=== PATIENT | female | born 1950 | race Caucasian/White ===

== ENCOUNTER 2018-07-03 03:44 | Emergency (ER) | payer OTHER ==
[2018-07-03 03:55] VITALS: BP 126/64; PULSE 63; TEMP 97.8
[2018-07-03] MEDS ORDERED: ACETAMINOPHEN 325 MG TABLET (FP) PO ONE (05:43)
--- NOTE | 2018-07-03 06:09 | PDOC ---
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 The patient states that she noted gradual, worsening, and constant L hip pressure which does not radiate. The pain is not associated with any dysuria, numbness, tingling, or weakness, fevers , chills, nausea, or vomiting. The pain is worse when bending forward but not alleviated by anything. Past History - Past Medical History Allergies/Adverse Reactions: Allergies Allergy/AdvReac Type Severity Reaction Status Date / Time No Known Allergies Allergy Verified 07/03/18 06:01 CVA: Yes COPD: No Other medical history: UNKNOWN MEDICAL HISTORY - Immunization History Immunization Up to Date: (UNKNOWN) - Suicide/Smoking/Psychosocial Hx Smoking History: Never smoked Have you smoked in the past 12 months: No Information on smoking cessation initiated: No Hx Alcohol Use: No Drug/Substance Use Hx: No Review of Systems - Review of Systems Able to Perform ROS?: Yes Comments:: 07/03/18 06:09 GENERAL/CONSTITUTIONAL: No fever or chills. No weakness. HEAD, EYES, EARS, NOSE AND THROAT: No change in vision. No ear pain or discharge. No sore throat. CARDIOVASCULAR: No chest pain, palpitations, or lightheadedness. RESPIRATORY: No cough, wheezing, shortness of breath, or hemoptysis. GASTROINTESTINAL: No nausea, vomiting, diarrhea, constipation, or abdominal pain. GENITOURINARY: No dysuria, frequency, hematuria, or change in urination. MUSCULOSKELETAL: Positive for L hip pain. No neck or back pain. SKIN: No rash or lesions. NEUROLOGIC: No headache, numbness, tingling, focal weakness, loss of consciousness, or change in strength/sensation. Is the patient limited Lao proficient: No *Physical Exam - Vital Signs Last Vital Signs Temp Pulse Resp BP Pulse Ox 97.8 F 63 20 126/64 95 07/03/18 03:51 07/03/18 03:51 07/03/18 03:51 07/03/18 03:51 07/03/18 03:51 - Physical Exam Comments: 07/03/18 06:10 GENERAL: Well developed, well nourished. Awake and alert. No acute distress. HEENT: Normocephalic, atraumatic. Hearing grossly normal. Dry mucous membranes. No conjunctival pallor. Sclera are non-icteric. NECK: Supple. Full ROM. No JVD. CARDIOVASCULAR: Regular rate and rhythm. No murmurs, rubs, or gallops. PULMONARY: No evidence of respiratory distress. Lungs clear to auscultation bilaterally. No wheezing, rales or rhonchi. ABDOMINAL: Soft. Non-tender. Non-distended. No rebound or guarding. GENITOURINARY: L CVA tenderness. MUSCULOSKELETAL: Normal range of motion at all joints. No bony deformities or tenderness. EXTREMITIES: No cyanosis. No clubbing. No edema. No calf tenderness or swelling. SKIN: Warm and dry. Normal capillary refill. No rashes. No jaundice. NEUROLOGICAL: Alert, awake, appropriate. Cranial nerves 2-12 grossly intact. Normal speech. Gait is normal without ataxia. PSYCHIATRIC: Cooperative. Good eye contact. Appropriate mood and affect. ED Treatment Course - RADIOLOGY Radiology Studies Ordered: Category Date Time Status HIP & PELVIS-LEFT [RAD] Stat Radiology 07/03/18 05:43 Ordered Medical Decision Making - Medical Decision Making 07/03/18 06:11 The patient is a 68F with a PMH of CVA who presents to the ER with complaints of L hip pain. The pain is worse with movements, making it likely MSK. Other ddx includes UTI, pyelo, and ovarian torsion (although much less likely 2/2 pt' s age and pain). UA was not able to be collected as the sample was too small. Will give tylenol for pain control and XR the area. 07/03/18 06:57 Pt signed out to Dr. Chawla for further evaluation. *DC/Admit/Observation/Transfer - Referrals Referrals: Floyd Gastelum MD [Primary Care Provider] - - Patient Instructions - Post Discharge Activity
--- NOTE | 2018-07-03 07:07 | PDOC ---
*Physical Exam - Vital Signs Last Vital Signs Temp Pulse Resp BP Pulse Ox 97.8 F 63 20 126/64 95 07/03/18 03:51 07/03/18 03:51 07/03/18 03:51 07/03/18 03:51 07/03/18 03:51 Medical Decision Making - Medical Decision Making Pt was signed out to me by resident Dr. Camp, who explained the presentation, ED course, any pending results, and needed interventions. Pending results include L hip x-ray and UA. Pt is currently stable and is lying comfortably. Pt was provided 650 mg PO ofirmev for pain, but pt still in discomfort. Will provide 800 mg PO Ibuprofen and reassess. Pt provided UA sample, but left toilet paper in the cup, which soaked up most of the urine and was not enough for UA test. May have to straight catheter. 07/03/18 06:59 Preliminary hip x-ray read in ER showed no acute fracture. Pending final read. Pt still unable to provide urine sample, provided some PO water. Providing 30 mg IV toradol for pain. 07/03/18 07:32 UA obtained, pending results. Pt states pain much improved after Toradol. Able to ambulate on her own to the restroom. 07/03/18 08:09 [id number] RAD/HIP & PELVIS-LEFT Pelvis and left hip: Pain. A single AP view of the pelvis reveals symmetrical hips, minimal degenerative changes in the hips and spine, patent SI joints with some reactive sclerosis on the left along with possible fibroid calcifications on the left. There is retained stool. An acute process is not seen. If symptoms persist, further imaging and orthopedic consultation may be of help. 07/03/18 08:26 UA negative. Pain still improved from presentation and pt can ambulate. Considering normal lab results and imaging, and symptomatic improvement of pain , pt can be discharged to [facility] home with follow-up. Pt advised to follow- up with PCP in 1-2 days. Strict return precautions provided with pt understanding. Advised pt she can continue taking Tylenol or ibuprofen at home for pain. 07/03/18 08:[address] transport back to [facility] assisted living. 07/03/18 09:18 *DC/Admit/Observation/Transfer Diagnosis at time of Disposition: Low back pain Qualifiers: Chronicity: acute Back pain laterality: left Sciatica presence: without sciatica Qualified Code(s): M54.5 - Low back pain - Discharge Dispostion Disposition: ALF FACILITY Condition at time of disposition: Good Decision to Admit order: No - Referrals Referrals: Floyd Gastelum MD [Primary Care Provider] - - Patient Instructions Printed Discharge Instructions: DI for Low Back Pain Additional Instructions: You were seen in the ER today for pain in your left low back and hip. Your x- ray today showed no fracture and your urine had no infection. Please follow-up with your primary care doctor within 1-2 days to discuss your visit and make sure your symptoms have improved. Please return to the ER if you have any worsening pain, incontinence (uncontrolled passage of urine or stool), development of fevers or chills, loss of sensation in your legs, loss of consciousness, inability to tolerate food or fluids, or any other concerns. - Post Discharge Activity
[2018-07-03] MEDS ORDERED: KETOROLAC TROMETHAMINE 30 MG/1 ML VIAL IM ONE (07:28)
[2018-07-03] MEDS ORDERED: KETOROLAC TROMETHAMINE 30 MG/1 ML VIAL ONE (07:56)
[2018-07-03 08:44] LABS: URINE APPEARANCE CLEAR; URINE BILIRUBIN NEGATIVE (<2.0 mg/dL); URINE COLOR YELLOW; URINE GLUCOSE (UA) NEGATIVE (NEGATIVE); URINE KETONE NEGATIVE (NEGATIVE); URINE LEUK ESTERASE NEGATIVE (NEGATIVE); URINE NITRITE NEGATIVE (NEGATIVE); URINE PROTEIN NEGATIVE (NEGATIVE); URINE UROBILINOGEN NEGATIVE mg/dL (0.2-1.0)
== END 2018-07-03 10:00 ==
LOC: JER 03:44
PROC: 3E0233Z Introduction of Anti-inflammatory into Muscle, Percutaneous Approach (ICD-10-PCS; principal; 2018-07-03)
DX: M54.5 Low back pain (principal); M25.552 Pain in left hip; I69.828 Other speech and language deficits following other cerebrovascular disease
CPT/HCPCS: 73523-TC-FY; 81003; 87086; 96372; 99282-25

== ENCOUNTER 2019-03-07 08:58 | Emergency (ER) | payer OTHER ==
[2019-03-07] MEDS ORDERED: DIPHTH,PERTUSS(ACELL),TET 0.5 ML DISP.SYRIN IM ONE (09:25)
[2019-03-07 09:36] VITALS: TEMP 99.2; BMI 19.8
--- NOTE | 2019-03-07 09:47 | PDOC ---
Documentation entered by Joseph Flores SCRIBE, acting as scribe for Ezequiel Singh MD. Ezequiel Singh MD: This documentation has been prepared by the Mark coe Elijah, SCRIBE, under my direction and personally reviewed by me in its entirety. I confirm that the documentation accurately reflects all work, treatment, procedures, and medical decision making performed by me. History of Present Illness - General Chief Complaint: Injury Stated Complaint: FALL History Source: Patient Exam Limitations: No Limitations - History of Present Illness Initial Comments: 03/07/19 09:26 Patient is a 68 year old female with a signficant past medical history of CVA ( with residual speech and motor deficits) who presents to the ED s/p fall occurring this morning. Patient reports that she was walking to the Bathroom and tripped. She tried to grab onto something, but missed and hit her chin on the toilet. Denies LOC. Pt states that she has poor balance at baseline 2/2 CVA and ambulates using a cane. Denies any dizziness/lightheadedness. Denies increased weakness/numbness in any extremity. At this time patient complains only of pain to her chin and reports some L forearm soreness. Denies Chest Pain , Abdominal Pain, Leg/Hip Pain Allergies:NKA PCP: Dr. Gastelum Past History - Past Medical History Allergies/Adverse Reactions: Allergies Allergy/AdvReac Type Severity Reaction Status Date / Time No Known Allergies Allergy Verified 07/03/18 06:01 Home Medications: Ambulatory Orders Ascorbate Calcium [Vitamin C] 500 mg PO DAILY 03/07/19 Aspirin [ASA -] 325 mg PO DAILY 03/07/19 Atorvastatin Calcium [Lipitor] 10 mg PO DAILY 03/07/19 Calcium Carbonate [Oysco-500] 500 mg PO DAILY 03/07/19 Esomeprazole Magnesium [Nexium 24Hr] 40 mg PO DAILY 03/07/19 Ferrous Sulfate 325 mg PO DAILY 03/07/19 Gabapentin [Neurontin -] 600 mg PO HS 03/07/19 Gabapentin [Neurontin] 300 mg PO BID 03/07/19 Lisinopril [Zestril] 2.5 mg PO DAILY 03/07/19 Metformin HCl [Glucophage] 500 mg PO BID 03/07/19 Multivitamin [Multiple Vitamins] 1 each PO DAILY 03/07/19 Sertraline HCl [Zoloft] 50 mg PO DAILY 03/07/19 levETIRAcetam [Keppra -] 500 mg PO BID 03/07/19 CVA: Yes COPD: No - Immunization History Immunization Up to Date: (UNKNOWN) - Suicide/Smoking/Psychosocial Hx Smoking History: Never smoked Have you smoked in the past 12 months: No Hx Alcohol Use: No Drug/Substance Use Hx: No Review of Systems - Review of Systems Comments:: 03/07/19 09:26 GENERAL/CONSTITUTIONAL: No fever or chills. No weakness. HEAD, EYES, EARS, NOSE AND THROAT: + Lac to Chin. No change in vision. No ear pain or discharge. No sore throat. CARDIOVASCULAR: No chest pain, no shortness of breath, no loss of consciousness RESPIRATORY: No cough, wheezing, or hemoptysis. GASTROINTESTINAL: No nausea, vomiting, diarrhea or constipation. GENITOURINARY: No dysuria, frequency, or change in urination. MUSCULOSKELETAL: + L forearm Soreness. No neck or back pain. SKIN: No rash NEUROLOGIC: No vertigo, no change in strength/sensation. ENDOCRINE: No increased thirst. No abnormal weight change. HEMATOLOGIC/LYMPHATIC: No anemia, easy bleeding, or history of blood clots. ALLERGIC/IMMUNOLOGIC: No hives or skin allergy. *Physical Exam - Vital Signs Last Vital Signs Temp Pulse Resp BP Pulse Ox 99.2 F 81 18 129/71 99 03/07/19 09:09 03/07/19 09:09 03/07/19 09:09 03/07/19 09:09 03/07/19 09:09 - Physical Exam Comments: 03/07/19 09:26 GENERAL: Awake, alert, and fully oriented, in no acute distress. HEAD: + 1cm lac to L lower chin EYES: PERRLA, EOMI, sclera anicteric, conjunctiva clear ENT: Auricles normal inspection, hearing grossly normal, nares patent, oropharynx clear without exudates. Moist mucosa NECK: Nontender, no stepoffs, Normal ROM, supple, no lymphadenopathy, JVD, or masses LUNGS: Breath sounds equal, clear to auscultation bilaterally. No wheezes, and no crackles HEART: Regular rate and rhythm, normal S1 and S2, no murmurs, rubs or gallops ABDOMEN: Soft, nontender, normoactive bowel sounds. No guarding, no rebound. No masses EXTREMITIES: + mild tenderness to L forearm, no deformity, no wrist or hand TTP , Normal range of motion, no edema. No clubbing or cyanosis. NEUROLOGICAL: Cranial nerves II through XII intact. 5/5 strength and sensation in all extremities, Normal speech, normal gait, normal cerebellar function SKIN: Warm, Dry, normal turgor, no rashes or lesions noted. Procedures - Laceration/Wound Repair Right Jaw Wound Length: to 2.5 cm Wound Explored: clean Wound's Depth, Shape: superficial Irrigated w/ Saline: Yes Anesthesia: 1% Lidocaine Amount of Anesthetic (ccs): 3 Wound Repaired With: Sutures Suture Size/Type: 5:0, nylon Number of Sutures: 3 ED Treatment Course - RADIOLOGY Radiology Studies Ordered: Category Date Time Status CERVICAL SPINE CT W/O CONTR [CT] Stat CT Scan 03/07/19 09:[address] W/O CONTRAST [CT] Stat CT Scan 03/07/19 09:[address] WITHOUT CONTRAST [CT] Stat CT Scan 03/07/19 09:22 Ordered FOREARM- LEFT [RAD] Stat Radiology 03/07/19 09:22 Ordered Medical Decision Making - Medical Decision Making 03/07/19 09:45 68 F with mechanical fall 2/2 poor balance from prior CVA. Pt without any syncopal/pre-syncope symptoms. Now with lac to chin and mild tenderness to L forearm. Pt with stable vitals in ED. Temp is 99.2 but pt with no subjective fevers, no tachycardia, no hypotension, no infectious symptoms. - CT head/c-spine/facial bones - XR L forearm - Tdap - Lac repair 03/07/19 11:06 Lac repaired with [address] and XR reads 03/07/19 11:24 CTs negative for acute fx XR negative on my read Pt is well appearing, with normal vitals. Clinically stable for DC at this time. I discussed the physical exam findings, ancillary test results and final diagnoses with the patient. I answered all of the patient's questions. The patient was satisfied with the care received and felt comfortable with the discharge plan and treatment plan. The patient agrees to follow up with the primary care physician within 24-72 hours. *DC/Admit/Observation/Transfer Diagnosis at time of Disposition: Fall, Laceration, Forearm pain - Discharge Dispostion Disposition: HOME - Referrals Referrals: Floyd Gastelum MD [Primary Care Provider] - - Patient Instructions Printed Discharge Instructions: DI for Laceration Repair -- Simple, How to Prevent Falls Additional Instructions: Your CT scans and X rays did not show any fractures or other injuries. We repaired a laceration on your chin with 3 sutures. These need to be removed in 5-7 days. Go to your primary doctor or return to the ER for suture removal. If you experience any headaches, nausea, vomiting, bleeding or drainage from your wound, redness or swelling, or any other concerning symptoms, return to the ER immediately. Otherwise, follow up with your primary doctor within 1 week. - Post Discharge Activity - Attestations Physician Attestion: 03/07/19 11:26 I, Dr. Ezequiel Singh MD, attest that this document has been prepared under my direction and personally reviewed by me in its entirety. I further attest, that it accurately reflects all work, treatment, procedures and medical decision -making performed by me.
[2019-03-07] MEDS ORDERED: ACETAMINOPHEN 500 MG TABLET (FP) PO ONE (12:20)
[2019-03-07] MEDS ORDERED: ACETAMINOPHEN 325 MG TABLET (FP) ONE (12:26)
[2019-03-07] MEDS ORDERED: ACETAMINOPHEN 325 MG TABLET (FP) PO ONE (12:32)
[2019-03-07 15:55] VITALS: BP 131/71; PULSE 83
== END 2019-03-07 15:50 | disposition home or self-care (01) ==
LOC: JER 08:58
PROC: 0HQ1XZZ Repair Face Skin, External Approach (ICD-10-PCS; principal; 2019-03-07)
PROC: 3E0234Z Introduction of Serum, Toxoid and Vaccine into Muscle, Percutaneous Approach (ICD-10-PCS; 2019-03-07)
DX: M79.632 Pain in left forearm (principal); S01.81XA Laceration without foreign body of other part of head, initial encounter; Z86.73 Personal history of transient ischemic attack (TIA), and cerebral infarction without residual deficits; W01.0XXA Fall on same level from slipping, tripping and stumbling without subsequent striking against object, initial encounter; Y93.89 Activity, other specified; Y92.002 Bathroom of unspecified non-institutional (private) residence as the place of occurrence of the external cause
CPT/HCPCS: 70450-TC; 70486-TC; 72125-TC; 73090-TC-LT-FY; 90715; 99281-25

== ENCOUNTER 2019-03-21 09:58 | Emergency (ER) | payer OTHER ==
--- NOTE | 2019-03-21 10:05 | PDOC ---
Suture Removal/Wound Check HPI - History of Present Illness Chief Complaint: Suture/Staple Removal(Here) Stated Complaint: STITCHES REMOVAL Time Seen by Provider: 03/21/19 10:02 History Source: Yes: Patient - Previous ED Treatment Type of procedure performed on last visit: Yes: Laceration Repair Tetanus Immunization: Yes: Up to Date Past History - Past Medical History Allergies/Adverse Reactions: Allergies Allergy/AdvReac Type Severity Reaction Status Date / Time No Known Allergies Allergy Verified 03/21/19 10:06 Home Medications: Ambulatory Orders Ascorbate Calcium [Vitamin C] 500 mg PO DAILY 03/07/19 Aspirin [ASA -] 325 mg PO DAILY 03/07/19 Atorvastatin Calcium [Lipitor] 10 mg PO DAILY 03/07/19 Calcium Carbonate [Oysco-500] 500 mg PO DAILY 03/07/19 Esomeprazole Magnesium [Nexium 24Hr] 40 mg PO DAILY 03/07/19 Ferrous Sulfate 325 mg PO DAILY 03/07/19 Gabapentin [Neurontin -] 600 mg PO HS 03/07/19 Gabapentin [Neurontin] 300 mg PO BID 03/07/19 Lisinopril [Zestril] 2.5 mg PO DAILY 03/07/19 Metformin HCl [Glucophage] 500 mg PO BID 03/07/19 Multivitamin [Multiple Vitamins] 1 each PO DAILY 03/07/19 Sertraline HCl [Zoloft] 50 mg PO DAILY 03/07/19 levETIRAcetam [Keppra -] 500 mg PO BID 03/07/19 Cardiac Disorders: Yes CVA: Yes COPD: No Diabetes: Yes - Immunization History Immunization Up to Date: (UNKNOWN) - Suicide/Smoking/Psychosocial Hx Smoking History: Never smoked Have you smoked in the past 12 months: No Hx Alcohol Use: No Drug/Substance Use Hx: No *Review of Systems - Review of Systems Constitutional: No: Chills, Fever *Physical Exam - Physical Exam General Appearance: Yes: Appropriately Dressed. No: Apparent Distress HEENT: positive: Normal Voice Neck: positive: Supple Respiratory/Chest: negative: Respiratory Distress Integumentary: positive: Dry, Warm, Other (well healing wound to R chin w/ 1 embedded suture) Neurologic: positive: Fully Oriented, Alert, Normal Mood/Affect Medical Decision Making - Medical Decision Making 03/21/19 10:04 68 yo F, h/o prior CVA, was seen in ED 14 days ago for UE lac in setting of fall. Here for suture removal. States she saw her PMD 2 days ago who removed 2 sutures but was unable to remove 1 per pt. No pain to site. Feels well otherwise See exam Suture removal 1 suture removed from R chin/jaw No complications Stable for dc back to AL facility *DC/Admit/Observation/Transfer Diagnosis at time of Disposition: Visit for suture removal - Discharge Dispostion Disposition: HOME Condition at time of disposition: Good - Referrals - Patient Instructions Printed Discharge Instructions: DI for Suture Removal Additional Instructions: 1 embedded suture was removed today Wound well healing w/ no signs of infection Follow up with PMD as needed - Post Discharge Activity
[2019-03-21 10:06] VITALS: BP 149/81; PULSE 98; TEMP 98.1; BMI 29.0
== END 2019-03-21 10:36 | disposition home or self-care (01) ==
LOC: JERFT 09:58
DX: Z48.02 Encounter for removal of sutures (principal)
CPT/HCPCS: 99281-25

== ENCOUNTER 2022-04-23 16:20 | Emergency (ER) | payer OTHER ==
[2022-04-23 16:37] VITALS: RESP 18; TEMP 98.2; BMI 36.6
[2022-04-23 18:07] LABS: BASO % 0.2 % (0-2.0); EOS % 0.8 % (0-4.5); HEMATOCRIT 35.1 % (32.4-45.2); HEMOGLOBIN 11.6 GM/dL (10.7-15.3); LYMPH % 19.4 % (8-40); MCH 30.4 pg (25.7-33.7); MEAN CELL VOLUME 92.2 fl (80-96); MEAN PLT VOLUME 8.9 fl (7.5-11.1); MONO % 6.7 % (3.8-10.2); NEUT % 72.9 % (42.8-82.8); PLATELET COUNT 191 10^3/uL (134-434); RBC 3.81 M/mm3 (3.60-5.2); RDW 13.1 % (11.6-15.6); WHITE BLOOD COUNT 8.2 K/mm3 (4.0-10.0)
[2022-04-23 18:12] LABS: INR 1.08 (0.83-1.09); PROTHROMBIN TIME (PATIENT) 12.4 SEC (9.7-13.0)
[2022-04-23 18:15] LABS: ACTIVATED PTT 35.4 SECONDS (25.2-36.5)
[2022-04-23 18:20] LABS: ALBUMIN 3.7 g/dl (3.4-5.0); BLOOD UREA NITROGEN 22.4 mg/dL (7-18); CALCIUM 9.4 mg/dL (8.5-10.1)
[2022-04-23 18:25] LABS: BILIRUBIN,TOTAL 0.2 mg/dL (0.2-1); TOT PROT 6.8 g/dl (6.4-8.2)
[2022-04-24 00:57] VITALS: BP 128/72; PULSE 78
== END 2022-04-24 01:00 | disposition home or self-care (01) ==
LOC: JER 16:20
DX: S00.83XA Contusion of other part of head, initial encounter (principal); W19.XXXA Unspecified fall, initial encounter
CPT/HCPCS: 0241U-QW; 36415; 70450-TC; 70486-TC; 71045-TC-FY; 72125-TC; 80053; 84484; 85025; 85610; 85730; 93005; 93010; 99285-25

== ENCOUNTER 2022-08-31 11:54 | Emergency (ER) | payer OTHER ==
[2022-08-31 12:46] VITALS: BP 139/80; PULSE 100; RESP 20; TEMP 98; BMI 28.1
[2022-08-31] MEDS ORDERED: FLUORESCEIN NA 1 EA STRIP ONE (14:16)
[2022-08-31] MEDS ORDERED: TETRACAINE 0.5% OPHTH SOLN 2 ML BOTTLE ONE (14:16)
[2022-08-31] MEDS ORDERED: DIPHTH,PERTUSS(ACELL),TET 0.5 ML DISP.SYRIN IM ONE ×2 (15:27→15:41)
== END 2022-08-31 16:39 | disposition home or self-care (01) ==
LOC: JERFT 11:54
PROC: 3E0234Z Introduction of Serum, Toxoid and Vaccine into Muscle, Percutaneous Approach (ICD-10-PCS; principal; 2022-08-31)
DX: T54.3X1A Toxic effect of corrosive alkalis and alkali-like substances, accidental (unintentional), initial encounter (principal); T26.61XA Corrosion of cornea and conjunctival sac, right eye, initial encounter
CPT/HCPCS: 90471; 90715; 99284-25